=== PATIENT | female | born 1990 | race Caucasian/White ===

== ENCOUNTER 2017-02-06 13:26 | Emergency (ER) | payer OTHER ==
[~2017-02-06] VITALS: Ht 157.5 cm; Wt 45.0 kg
[~2017-02-06 13:26] MED LIST: ADVAIR 100/501 DISK IH; FERROUS SULFAT325 MG PO; IBUPROFEN800 MG PO; Levothroid,Synthroid PO; MACROBID100 MG PO; Motrin PO; PREFERA-OB P1 TABLET PO; SYNTHROID175 MCG PO
[2017-02-06 14:02] LABS: ADD MIUA? YES; BILIRUBIN NEGATIVE; BLOOD LARGE; COLOR YELLOW ((YELLOW)); GLUCOSE (STRIP) NEGATIVE; KETONES 5; LEUKOCYTES NEGATIVE; NITRITE NEGATIVE; PROTEIN (STRIP) 30; SPECIFIC GRAVITY 1.021 (1.000-1.030); UROBILINOGEN 0.2 MG/DL (0.2-1.0)
[2017-02-06 14:04] LABS: INTERNAL CONTROL VALID? YES
[2017-02-06 14:05] LABS: BACTERIA RARE /HPF; EPITHELIAL CELLS RARE /HPF; MUCUS 1+ /LPF; RED BLOOD CELLS 20-30 /HPF (0-5); UCUL ADDED? NO; WHITE BLOOD CELLS 0-5 /HPF (0-5)
[2017-02-06 14:13] VITALS: BP 91/58
== END 2017-02-06 14:19 | disposition home or self-care (01) ==
LOC: EME 13:26
PROVIDERS: Physician Assistant Medical
DX: N93.8 Other specified abnormal uterine and vaginal bleeding (principal); J45.909 Unspecified asthma, uncomplicated; E05.90 Thyrotoxicosis, unspecified without thyrotoxic crisis or storm
CPT/HCPCS: 81003; 84703; 99281; 99283